=== PATIENT | male | born 1955 | race Asian ===

== ENCOUNTER → 2018-03-11 | Outpatient (CLI) | payer OTHER ==
[~2018-03-11] MED LIST: ASPI81 PO; BENA20 PO; CARV3 PO; CEPH500 PO; CETI-290 PO; CLOP75 PO; HYDROCODONE ACETA PO; METF500T6 PO; PANT40TA25 PO; PRAV40TA4 PO; TERA1 PO
[2018-03-11 10:03] VITALS: BP 106/64
== END | disposition home or self-care (01) ==
LOC: SRCNTR 09:57
PROVIDERS: ATTEND Internal Medicine Clinical Cardiac Electrophysiology
DX: Z45.02 Encounter for adjustment and management of automatic implantable cardiac defibrillator (principal); I11.0 Hypertensive heart disease with heart failure; I50.9 Heart failure, unspecified; I25.10 Atherosclerotic heart disease of native coronary artery without angina pectoris; E78.00 Pure hypercholesterolemia, unspecified; Z79.82 Long term (current) use of aspirin
CPT/HCPCS: G0463